=== PATIENT | female | born 1985 | race African-American/Black ===

== ENCOUNTER 2021-03-03 20:25 | Emergency (ER) | payer MEDICAID ==
[~2021-03-03] VITALS: Ht 170.2 cm; Wt 59.0 kg
[2021-03-03 20:33] VITALS: BP 102/67
--- NOTE | 2021-03-03 20:33 | NUR ---
TO BED AMBULATORY
--- NOTE | 2021-03-03 20:40 | NUR ---
RECEIVED IN BED 10 WITH C/O CHEST PAIN. DENIES PMH. IS VISITING HERE FROM [place]. IS AWAKE AND ALERT WITH FACIAL GRIMACING NOTED. ATTACHED TO CM = SR WITHOUT ECTOPY.
--- NOTE | 2021-03-03 21:06 | NUR ---
Dr. Hernandez examining patient.
[2021-03-03] MEDS ORDERED: KETOROLAC 60 MG/2 ML VIAL IM ONE (21:10)
--- NOTE | 2021-03-03 21:17 | NUR ---
X-Ray at bedside.
[2021-03-03 22:00] VITALS: BP 104/68
[2021-03-03] MEDS ORDERED: IBUP-2213 PO (22:18)
[2021-03-03] MEDS ORDERED: ACET-8386 PO (22:18)
[2021-03-03] MEDS ORDERED: ONDA8TAB87 PO (22:18)
--- NOTE | 2021-03-03 22:23 | NUR ---
Patient discharged with v/s stable. Written and verbal after care instructions given and explained. Patient alert, oriented and verbalized understanding of instructions. Ambulatory with steady gait. All questions addressed prior to discharge. ID band removed. Patient advised to follow up with PMD. Rx of IBUPROFEN, HYDROCODONE given. Patient educated on indication of medication including possible reaction and side effects. Opportunity to ask questions provided and answered.
== END 2021-03-03 22:23 | disposition home or self-care (01) ==
LOC: MED 20:25
DX: R07.89 Other chest pain (principal); R06.02 Shortness of breath; R11.0 Nausea
CPT/HCPCS: 71045; 93005; 96372; 99283; J1885